=== PATIENT | male | born 1970 | race Caucasian/White ===

== ENCOUNTER → 2016-05-28 | Outpatient (CLI) | payer OTHER ==
--- NOTE | 2016-05-29 05:58 | PAP/PSG TECHNICIAN REPORT ---
[facility] Vendor Management Associate Polysomnogram Report Study name: None Report date: 05/29/2016 Study date: 05/28/2016 Referring Physician: Solitario Rendon M.D. Name: HARRY MATIAS Interpreting Physician: Jean Rendon M.D. Date of : 1970 Vendor Management Associate: ALYSSIA Rajput. Sex: Male Age: 45 StudyType: PSG Weight: 263 lbs Height: 45 years, Height 5' 10.5" Neck Circum:16.5 inches BMI: 37.2 Medications: Voltaren 75 mg, Lantus, Cymbalta 30 mg, Lamictal 100 mg, Lasix 40 mg, Klonopin 0.5 mg, Vitamin D, Pravachol 40 mg, Protonix 40 mg, Neurontin 300 mg, Naproxen 500 mg Patient History 45 yr. old male here for a possible split night sleep study with ETC02. Patient had a PSG at [facility] in February 2009 that showed an AHI of 16. HE tried CPAP but it was returned for non-compliance. He has since gained 30 pounds. [place] Sleepiness scale score 20/24. Parameters Monitored NPSG: E1-M2, E2-M1, Fp1-M2, Fp2-M1, F3-M2, F4-M2, F4-M1, C3-M2, C4-M2, C4-M1, O1-M2, O2-M2, O2-M1, T3-M2, T4-M1, P3-M2, P4-M1, CHIN1, CHIN2, HR, EKG, Legs, PFLOW, SNOR, FLOW, CFLOW, Tidal Volume, THOR, ABDO, SpO2, PLTH, CPRESS, ETCO2 Wave, ETCO2, pH Sleep Architecture Sleep Stages Time at Lights Off 8:22:38 PM STAGES Time (min.) TST (%) Time at Lights On 5:31:38 AM Wake 57.0 -- Total Recording Time (TRT) 549.00 min. N1 30.5 6 Total Sleep Period (TSP) 542.0 min. N2 429.0 87 Total Sleep Time (TST) 492.0min. N3 0.0 0 Awake Time 57.0 min. REM 32.5 7 Wake after Sleep Onset 50.0 min. Sleep Efficiency (SE) 90 % Sleep Onset Latency (KOMAL) 7.0 min. Number of Stage 1 Shifts None Awakenings 20 Stage Changes 69 Number of REM periods 4 REM 32.5 7 REM Latency 390.5 min. NREM 459.5 93 Body Position Analysis Supine Right Left Side Prone Vertical Total Sleep Time (min.) 395.0 77.1 0.0 77.06 0.0 73.7 Total Sleep Time (%) 70% 16% 0% 16 0% 100% Total Sleep Time REM (min.) 32.5 0.0 0.0 None 0.0 0.0 Total Sleep Time NREM (min.) 310.9 77.1 0.0 None 0.0 71.5 Intermittent Wake (min.) 51.6 3.2 0.0 None 0.0 2.2 Total Sleep Period (%) 72% None None None None None Arousals Myoclonus (PLM) * Events Count Index Events Count Index Spontaneous 3 0 Events Awake (PLMW) 24 25.3 Respiratory 3 0.5 Events Asleep w/ Arousal (PLMA) 9 1.1 PLM 9 1 Events Asleep w/o Arousal (PLMS) 416 50.7 Snoring 9 1 Total Asleep 425 51.8 Total 24 3 Total 449 49 Respiratory Analysis * CA OA MA CH H RERA Total Count 0 0 0 0 138 0 138 Index 0.0 0.0 0.0 0 16.8 0 16.8 Mean Duration 0.0 0.0 0.0 0.00 21.3 0.0 21.3 Longest Duration 0.0 0.0 0.0 0.00 0.0 0.0 72.4 Respiratory Event Summary Total Supine ~Supine Right Left Prone REM NREM Apneas Count 0 0 0 0 N/A N/A 0 0 Index 0.0 0 0 0.0 N/A N/A 0 0 Hypopneas (4% Desat) Count 138 127 11 7 N/A N/A 35 103 Index 16.8 22.2 4 5.4 N/A N/A 64.6 13.4 Apneas & All Hypopneas Count 138 127 11 7 N/A N/A 35 103 Index 16.8 22 4 5 N/A N/A 64.6 13.4 Respiratory Events (Administrative Law Judge+All Hyp+RERA) Count 138 127 11 7 N/A N/A 35 103 Index 16.8 22 4 5.4 N/A N/A 64.6 13.4 Respiratory Related Arousal Count 3 127 1 1 N/A N/A 0 4 Index 0.5 1 0 1 N/A N/A 0 1 Snoring Analysis Supine Right Left Prone REM NREM Total Snore duration 11.4 min Snores count 420 135 N/A N/A 84 471 555 Snore mean duration 1.2 Sec Snores index 73 105 N/A N/A 155.1 61.5 67.7 TST with snoring (%) 2.3% SpO2 Analysis Total REM NREM Awake <50% 0.0 min. 0.0 min. 0.0 min. 0.0 min. 51 - 60% 0.0 min. 0.0 min. 0.0 min. 0.0 min. 61 - 70% 0.2 min. 0.2 min. 0.0 min. 0.0 min. 71 - 80% 5.9 min. 5.7 min. 0.2 min. 0.1 min. 81 - 90% 78.7 min. 16.1 min. 59.9 min. 2.7 min. 91 - 100% 454.2 min. 10.6 min. 399.4 min. 44.2 min. Average 92 87 92 94 Minimum SpO2 69 69 78 79 Desaturation Event Index 20.7 79.4 17.9 11.6 # Desat. Events below 89% 108 39 62 7 Time(%) with Saturation below 89% 5.8 3.3 2.2 0.4 Time(min.) with Saturation below 89% 31.5 17.7 11.9 1.9 Heart Rate Analysis End Tidal CO2 Analysis Min (bpm) Max (bpm) Average (bpm) TSP (mins) % of TSP Awake 72 100 84 Above 55 mmHg 2.9 0.6 NREM 69 109 82 50-55 mmHg 139.3 28.3 REM 73 93 82 45-50 mmHg 285.9 58.1 Overall 69 109 82 40-45 mmHg 51.1 10.4 35-40 mmHg 8.3 1.7 30-35 mmHg 3.1 0.6 Average ETCO2 0.0 Supplemental O2 Values Minimum O2 level: None Value Start Time End Time Vendor Management Associate Comments slept in the supine and upright positions. No cardiac arrhythmia. PLMs noted. No bruxism noted. Snoring was noted and scored as a 2 on a scale of 0 through 5. (0=no snoring, 5=snoring loud enough to be heard through a closed door or down the camacho way) awoke to use the restroom once during the night stated, That was a normal night. The final report will be interpreted and signed by a sleep physician. The completed physician report will then be placed in the patient medical record. Therapy (cm H2O) 0 TIB (min.) 549.0 TST (min.) 492.0 Sleep Onset (min.) 7.0 REM Onset From Sleep (min.) 390.5 Sleep Efficiency % 90 Wakefulness (%) 10 Wakefulness (min.) 57.0 NREM 1 (%) 6 NREM 1 (min.) 30.5 NREM 2 (%) 87 NREM 2 (min.) 429.0 NREM 3 (%) 0 NREM 3 (min.) 0.0 REM (%) 7 REM (min.) 32.5 # Arousals 24 Arousal Index 3 # Snore 555 Snore Index 67.7 AHI 16.8 AHI Supine 22 AHI Non-Supine 4 NREM AHI 13.4 REM AHI 64.6 RDI 16.8 # Obstructive Apnea 0 # Central Apnea 0 # Mixed Apnea 0 # Hypopneas 138 RERAs 0 Total Respiratory Events 146 Time Below SpO2 89% (min.) 29.6 Mean NREM SpO2 (%) 92 Mean REM SpO2 (%) 87 Mean Sleep SpO2 (%) 92 Min NREM SpO2 (%) 78 Min REM SpO2 (%) 69 Position Supine (min.) 395.0 Position Non-supine (min.) 148.6 LM Index Sleep 51.8 LM Index NREM 53.1 LM Index REM 33.2 Mean Heart Rate (bpm) 82 Min Heart Rate (bpm) 69
--- NOTE | 2016-06-15 07:45 | POLYSOMNOGRAPH REPORT ---
REFERRING PERSON: Dr. Jazlyn Rendon. DISTRICT GAUGER: Sarah Charles. Mr. Kuhn is a 45-year-old male sent for a possible split night sleep study. He had a sleep study performed at [facility] in February of 2009 which showed an AHI of 16. He tried CPAP at that time but was noncompliant. Since then, he has gained 30 pounds. His [place] sleepiness scale score on the evening of this study is 20. BMI is 37.2. Following the technical and digital specifications of the [place] [employer] (AASM) a standard diagnostic polysomnogram was performed monitoring EEG, EOG, EMG (chin and leg deviations), oxygen saturation, body position, digital video, respiratory effort and airflow. The sleep Stage and event scoring was based on the AASM Manual for the Scoring of Sleep and Associated Events 2007 edition. Apneas are defined as a drop in the peak thermal sensor excursion by >90% of baseline for at least 10 seconds. Hypopneas were scored using the 4% oxygen desaturation rule (4A-[employer]) and a decrease in the nasal pressure excursions by >30% of baseline for at least 10 seconds. Respiratory effort-related arousal (RERA's) is defined as a sequence of breaths lasting at least 10 seconds characterized by increasing respiratory effort or flattening of the nasal pressure waveform leading to an arousal from sleep when the sequence of breaths does not meet criteria for an apnea or hypopnea. Apnea Hypopnea index (AHI) is defined as the number of apneas and hypopneas occurring in an hour of sleep. Respiratory disturbance index (RDI) is defined as the number of apneas, hypopneas, and RERA's occurring in an hour of sleep. Mr. Kuhn's total sleep period time was 542 minutes. Total sleep time was 492 minutes. Sleep efficiency was 90%. Latency to sleep onset was 7 minutes with wake after sleep onset of 50 minutes. Total non-REM sleep time was 459.5 minutes. He spent 6% of that time in N1 sleep, 87% in N2 sleep and no time in N3 sleep. REM latency was 390.5 minutes. Total REM sleep time was 32.5 minutes or 7% of total sleep time. This is abnormal sleep architecture with a propensity for superficial sleep. There were 24 cortical arousals from sleep. Three of these arousals were spontaneous, 3 were due to respiratory events, 9 were due to periodic limb movements of sleep and 9 were due to snoring. There were 425 periodic limb movements noted on this test. Limb movement index was 51.8, limb movement with arousal index was 1.1. There were no central obstructive or mixed apneas on this baseline study. However, there were 138 hypopnea. Apnea-hypopnea index was 16.8 consistent with moderately severe sleep apnea. 555 snoring events were recorded. Total sleep time with snoring was 2.3%. Mean saturation during sleep was 92% with desaturations to 69%. Saturations were less than 89% for 31.5 minutes of recorded time. This is significant nocturnal hypoxemia. There was no cardiac ectopy noted on this study. Heart rates ranged from a low of 69 beats per minute to a high of 109 beats per minute during sleep. End-tidal CO2 was recorded on this patient. End-tidal CO2s were above 55 mmHg for 0.6% of total sleep period time, between 50 and 55 mmHg for 28.3% of total sleep period time, between 45 and 50 mmHg for 58.1%, between 40 and 45 mmHg for 10.4% and were less than 40 mmHg for 2.3% of total sleep period time. This suggests an element of hypoventilation. IMPRESSION AND PLAN: 45-year-old male with evidence of moderately severe sleep apnea, mild nocturnal hypoxemia and possible hypoventilation on this sleep study. 1. This patient would likely benefit from positive airway pressure therapy. He should return to the sleep lab for a full night titration and then based on those results be started on equipment at home. A download from his machine can be reviewed in 1 month both to check compliance as well as AHI and further pressure adjustments can occur at that time. 2. Alternatively, this patient could be started on auto titrating CPAP with pressures of 5-15 cm. A download from his machine can be reviewed after 1 month and he can be set to optimal pressure at that time. 3. Should this patient be unwilling or unable to tolerate CPAP therapy, he should be referred to ear, nose and throat or oral surgery/dental medicine to discuss alternative treatments for sleep disorder breathing.
== END ==
LOC: C.NEUR 20:00
PROVIDERS: ATTEND Family Medicine
DX: G47.33 Obstructive sleep apnea (adult) (pediatric) (principal)